=== PATIENT | female | born 1980 | race Caucasian/White ===

== ENCOUNTER → 2017-03-15 | Outpatient (CLI) | payer MEDICARE, MEDICAID ==
[~2017-03-15] MED LIST: ALBUTEROL0.09 MG/A4 IH; ATARAX50 MG PO; ATIVAN 2MG2 MG PO; AZITHROMYCIN250 MG PO; BACTRIM DS 8001 TAB PO; CIPRO 500MG TA500 MG PO; DEPAKOTE 250MG250 MG PO; DEPAKOTE500 M1 PO; LAMICTAL 100MG100 MG PO; LATUDA40 MG PO; LEVOTHYROXINE PO; LITHIUM CARBON300 MG PO; LORTAB 5/500 501 TAB PO; NAPROSYN 2250 MG/TAB PO; NO HOME MEDICATIONS; PEPCID 20MG TAB20 MG PO; PERCOCET 5/321 UDTAB PO; PHENERGAN W/CO120 ML PO; PREDNISONE20 MG PO; PRENATAL1 TA3 PO; PROVENTIL0.09 MG/A1 IH; RT ADVAIR 228 DISKUS IH; SEROQUEL 2525 MG/TAB PO; SYNTHROID0.05 MG/TA PO; TRAZADONE HYDR100 MG PO; ULTRAM 50MG TAB50 MG PO; UNABLE; WELLBUTRIN XL300 M1 PO; ZIPRASIDONE PO; ZITHROMAX 250M250 MG PO; ZITHROMAX TRI-500 MG PO; ZYPREXA10 MG PO; ZYRTEC 10MG10 MG PO
== END ==
LOC: BHSO 15:59
DX: F31.73 Bipolar disorder, in partial remission, most recent episode manic (principal)

== ENCOUNTER 2017-04-07 03:46 | Emergency (ER) | payer MEDICARE, MEDICAID ==
[~2017-04-07] VITALS: Ht 172.7 cm; Wt 98.2 kg
[~2017-04-07 03:46] MED LIST changes: -PEPCID 20MG TAB20 MG PO
[2017-04-07 03:50] VITALS: TEMP 97.9
[2017-04-07 04:20] LABS: BASO # 0.1 (0.0-0.2); BASO % 0.6 % (0.0-2.0); EOS # 0.2 (0.0-0.7); EOS % 1.8 % (0-4.0); GRAN # 7.3 (1.4-6.5); GRAN % 60.3 % (42.2-75.2); HEMATOCRIT 41.3 % (37.0-47.0); HEMOGLOBIN 14.1 g/dl (12.5-16.0); LYMPH % 32.6 % (20.0-51.0); MEAN CELL VOLUME 86 fl (80.0-100.0); MEAN CORPUSCULAR HEMOGLOBIN 29 pg (27.0-31.0); MEAN CORPUSCULAR HGB CONC 34 g/dl (33.0-37.0); MEAN PLATELET VOLUME 9.8 fl (7.4-10.4); MONO # 0.5 (0.1-0.6); MONO % 4.4 % (1.7-9.3); PLATELET COUNT 280 K/mm3 (130-400); RED BLOOD COUNT 4.79 M/mm3 (4.10-5.30); REDCELL DISTRIBUTION WIDTH-CV 12.7 % (11.5-14.5); WHITE BLOOD COUNT 12.2 K/mm3 (4.8-10.8)
[2017-04-07 04:29] LABS: ADJUSTED CALCIUM 9.2 mg/dL (8.4-10.2); ALBUMIN 4.2 gm/dL (3.5-5.0); BILIRUBIN,TOTAL 0.5 mg/dL (0.0-1.0); CALCIUM 9.4 mg/dL (8.4-10.2); CREATININE, serum 0.7 mg/dL (0.52-1.25); POTASSIUM 3.6 mmol/L (3.4-5.0); TOTAL PROTEIN 7.9 gm/dL (6.4-8.2)
[2017-04-07 05:12] LABS: PH 6 (5-8); SQUAMOUS EPITHELIAL 0-2 /hpf; URINE APPEARANCE Clear; URINE BACTERIA Rare /hpf; URINE BILIRUBIN Negative (NEGATIVE); URINE BLOOD Negative (NEGATIVE); URINE COLOR Yellow; URINE GLUCOSE Negative (NEGATIVE); URINE KETONE Negative (NEGATIVE); URINE RBC 0-2 /hpf; URINE UROBILINOGEN Negative (NEGATIVE); URINE WBC 0-2 /hpf
[2017-04-07] MEDS ORDERED: PEPCID 20MG TAB20 MG PO (06:06)
[2017-04-07 06:35] VITALS: BP 140/90; PULSE 74
== END 2017-04-07 06:34 | disposition home or self-care (01) ==
LOC: COL.ER 03:46
PROVIDERS: Emergency Medicine
DX: R10.11 Right upper quadrant pain (principal); R10.13 Epigastric pain; F31.9 Bipolar disorder, unspecified; J45.909 Unspecified asthma, uncomplicated; E03.9 Hypothyroidism, unspecified; F17.210 Nicotine dependence, cigarettes, uncomplicated; Z90.711 Acquired absence of uterus with remaining cervical stump; Z90.49 Acquired absence of other specified parts of digestive tract; Z90.89 Acquired absence of other organs; Z98.51 Tubal ligation status; Z98.890 Other specified postprocedural states
CPT/HCPCS: J1885; J2765; J3010; J7030; Q9967

== ENCOUNTER → 2017-06-17 | Outpatient (CLI) | payer MEDICARE, MEDICAID ==
[~2017-06-17] MED LIST changes: +PEPCID 20MG TAB20 MG PO
== END ==
LOC: BHSO 10:41
DX: F31.73 Bipolar disorder, in partial remission, most recent episode manic (principal)

== ENCOUNTER → 2017-09-13 | Outpatient (CLI) | payer MEDICARE, MEDICAID | LOC: BHSO 09:48 | DX: F31.73 Bipolar disorder, in partial remission, most recent episode manic (principal) ==

== ENCOUNTER 2017-11-12 10:19 | Emergency (ER) | payer MEDICARE, MEDICAID ==
[~2017-11-12] VITALS: Ht 175.3 cm; Wt 90.5 kg
[2017-11-12 10:27] VITALS: BP 135/80; TEMP 98.3
[2017-11-12 11:13] VITALS: PULSE 78
== END 2017-11-12 11:13 | disposition home or self-care (01) ==
LOC: COL.ER 10:19
DX: R11.2 Nausea with vomiting, unspecified (principal); R19.7 Diarrhea, unspecified; Z90.49 Acquired absence of other specified parts of digestive tract; Z90.89 Acquired absence of other organs

== ENCOUNTER → 2018-02-01 | Outpatient (CLI) | payer MEDICARE, MEDICAID | LOC: BHSO 10:17 | DX: F31.81 Bipolar II disorder (principal) | CPT/HCPCS: G0463 ==

== ENCOUNTER → 2018-05-19 | Outpatient (CLI) | payer MEDICARE, MEDICAID | LOC: BHSO 10:26 | DX: F31.81 Bipolar II disorder (principal) | CPT/HCPCS: G0463 ==

== ENCOUNTER → 2018-08-22 | Outpatient (CLI) | payer MEDICARE, MEDICAID | LOC: BHSO 09:30 | DX: F31.81 Bipolar II disorder (principal) | CPT/HCPCS: G0463 ==

== ENCOUNTER 2018-10-01 08:54 | Emergency (ER) | payer OTHER, MEDICARE, MEDICAID ==
[~2018-10-01] VITALS: Ht 172.7 cm; Wt 86.4 kg
[2018-10-01 08:59] VITALS: BP 156/75; PULSE 86; TEMP 97.7
[2018-10-01] MEDS ORDERED: VRAYLAR3 MG PO (09:12)
[2018-10-01] MEDS ORDERED: SINGULAIR 110 MG/TAB PO (09:12)
[2018-10-01] MEDS ORDERED: SAXENDA6 MG/ML SQ (09:12)
[2018-10-01] MEDS ORDERED: FLONASE NASAL S16 GM NS (09:17)
[2018-10-01] MEDS ORDERED: PRILOSEC 20MG20 MG PO (09:20)
[2018-10-01] MEDS ORDERED: ZOFRAN 4MG T4 MG/TAB PO (09:21)
[2018-10-01] MEDS ORDERED: TORADOL 10MG TA10 MG PO (10:26)
== END 2018-10-01 10:49 | disposition home or self-care (01) ==
LOC: COL.ER 08:54
DX: S16.1XXA Strain of muscle, fascia and tendon at neck level, initial encounter (principal); S00.83XA Contusion of other part of head, initial encounter; G44.209 Tension-type headache, unspecified, not intractable; E03.9 Hypothyroidism, unspecified; J45.909 Unspecified asthma, uncomplicated; K21.9 Gastro-esophageal reflux disease without esophagitis; F31.9 Bipolar disorder, unspecified; Z87.891 Personal history of nicotine dependence; V43.52XA Car driver injured in collision with other type car in traffic accident, initial encounter
CPT/HCPCS: J1885